=== PATIENT | male | born 1960 | race Caucasian/White ===

== ENCOUNTER 2018-05-03 11:15 | Emergency (ER) | payer OTHER ==
[2018-05-03 11:49] VITALS: TEMP 98; BMI 76.8
--- NOTE | 2018-05-03 11:51 | PDOC ---
History of Present Illness - General Chief Complaint: Blood Pressure Problem Stated Complaint: BLOOD PRESSURE PROBLEM Time Seen by Provider: 05/03/18 11:50 History Source: Patient Exam Limitations: No Limitations - History of Present Illness Initial Comments: 05/03/18 12:42 Mr. Pina is a 57 yo M with a hx of diabetes mellitus and atrial fibrillation who presents to the emergency department with "out of control blood pressure". He states he depleted his metoprolol medication 5 days ago, subsequently leading to 3 days of missed doses. He doubled his usual dose (50mg ) to 100 mg total each for the past two days. He admits to having compliance issues with his other medications and does not take them as prescribed. His usual blood pressures is 140/100. Concurrently, he developed a 7/10 pressure like frontal headache without radiation 5 days ago that improved when he used his metoprolol. Currently, he describes is as a 1/10 now. Denies the following: lightheadedness, fever, recent vision change, chest pain, SOB, mid thoracic back pain, hematuria, hemoptysis, hematemesis, focal neurological deficits, and ataxia. Pmhx: Atrial fibrillation, Diabetes mellitus Shx: Bilateral shoulder repair 2010 Medications: Aspirin 81 mg, eliquis, pravastatin, metoprolol, and fenofibrate. Allergies: None Social history: Ceased smoking cigarettes 15 years ago. Endorses 1 beer/shot 1x per month. Denies substance abuse PCP: Dr. Kale Salmeron [phone] 05/03/18 13:04 05/03/18 13:08 Past History - Past Medical History Allergies/Adverse Reactions: Allergies Allergy/AdvReac Type Severity Reaction Status Date / Time No Known Allergies Allergy Verified 05/03/18 11:52 - Suicide/Smoking/Psychosocial Hx Smoking History: Never smoked Have you smoked in the past 12 months: No Information on smoking cessation initiated: No Hx Alcohol Use: No Drug/Substance Use Hx: No Review of Systems - Review of Systems Able to Perform ROS?: Yes Constitutional: No: Chills, Diaphoresis, Fever, Weakness, Unexplained wgt Loss HEENTM: No: Blurred Vision, Recent change in vision, Ear Pain, Nose Pain, Throat Pain, Mouth Pain Respiratory: No: Cough, Shortness of Breath, Hemoptysis Cardiac (ROS): No: Chest Pain ABD/GI: No: Constipated, Diarrhea, Nausea, Rectal Bleeding, Vomiting, Tarry Stools : No: Burning, Dysuria, Hematuria Musculoskeletal: No: Back Pain, Muscle Weakness Integumentary: No: Rash Neurological: Yes: Headache (frontal pressure like) Endocrine: No: Unexplained Weight Gain *Physical Exam - Vital Signs Last Vital Signs Temp Pulse Resp BP Pulse Ox 98.0 F 91 H 16 191/128 98 05/03/18 11:42 05/03/18 11:42 05/03/18 11:42 05/03/18 11:42 05/03/18 11:42 - Physical Exam General Appearance: Yes: Nourished, Appropriately Dressed HEENT: positive: EOMI, SYDNIE, Normal Voice Neck: negative: Lymphadenopathy (R), Lymphadenopathy (L) Respiratory/Chest: positive: Lungs Clear, Normal Breath Sounds ED Treatment Course - LABORATORY CBC & Chemistry Diagram: 05/03/18 13:00 05/03/18 13:00 Medical Decision Making - Medical Decision Making 05/03/18 16:46 165/117 at 3:00 pm prior to labetolol dose. 150/104 at 3:45 pm s/p 1st labetolol 10 mg dose 155/102 at 4:30 pm s/p 2nd labetolol 10 mg dose. Understands instructions at discharge to continue using current medications as prescribed which includes his anti-hypertensives and to follow up with his primary care doctor tomorrow (05/04/2018) for further management. This was reiterated to him multiple times throughout the stay. 05/03/18 16:47 *DC/Admit/Observation/Transfer Diagnosis at time of Disposition: Hypertension Qualifiers: Hypertension type: unspecified Qualified Code(s): I10 - Essential (primary) hypertension - Discharge Dispostion Disposition: HOME Decision to Admit order: No - Referrals Referrals: Kale Salmeron [Primary Care Provider] - - Patient Instructions Printed Discharge Instructions: DI for High Blood Pressure, How to Monitor Your Blood Pressure at Home Additional Instructions: You have been diagnosed with hypertension today. Please return to the emergency department if your blood pressure becomes unstable. Please return to the emergency department if you develop chest pain, shortness of breath, or any concerning symptom. Follow up with your primary care provider, Dr. Salmeron, tomorrow (05/04/2018) to adjust anti-hypertensive medications and further follow up. - Post Discharge Activity
[2018-05-03] MEDS ORDERED: ACETAMINOPHEN 1000 MG/100 ML VIAL (NON FORMULARY) IVPB ONE (12:22)
[2018-05-03] MEDS ORDERED: LABETALOL HCL 5 MG/1 ML (100MG/20 ML VIAL) IVPUSH ONE ×2 (12:22→14:45)
--- NOTE | 2018-05-03 12:38 | PDOC ---
Attending Attestation - Resident Resident Name: AraceliFranky - ED Attending Attestation I have performed the following: I have examined & evaluated the patient, The case was reviewed & discussed with the resident, I agree w/resident's findings & plan, Exceptions are as noted - HPI HPI: 05/03/18 12:10 57 year old M c/ hx CAD p/w hypertension, DM, HLD, afib on eliquis presents with headache and hypertension. The patient reported that he ran out of his metoprolol 50 mg daily 5 days ago. He reports that his baseline HTN is systolis 140s and diastolics around 105, even while on medication. For 3 days, the patient stated that his BP was elevated and was complaining about gradual tension headaches. Once he refilled his prescription two days ago, he had doubled his dosing of his blood pressure medication, however, his BP continue to remain elevated. His headache improved significantly but continued to have persistent headache. Denies slurring of speech, numbness, weakness, gait instability. Denies chest pain, SOB, fevers, chills, cough, vomiting, diarrhea. Because of persistence of HTN, pt came into the ED. - Physicial Exam PE: 05/03/18 12:38 GENERAL: Awake, alert, and fully oriented, in no acute distress HEAD: No signs of trauma EYES: EOMI, sclera anicteric, conjunctiva clear ENT: Auricles normal inspection, hearing grossly normal, nares patent NECK: Normal ROM, supple LUNGS: Breath sounds equal, clear to auscultation bilaterally. No wheezes, and no crackles HEART: Irregular rate and rhythm, normal S1 and S2, no murmurs, rubs or gallops ABDOMEN: Soft, nontender, No guarding, no rebound. No masses EXTREMITIES: Normal range of motion, no edema. No clubbing or cyanosis. No cords, erythema, or tenderness NEUROLOGICAL: Cranial nerves II through XII grossly intact. Normal speech, normal gait SKIN: Warm, Dry, normal turgor, no rashes or lesions noted. - Medical Decision Making 05/03/18 12:41 Vital Signs Temp Pulse Resp BP Pulse Ox 98.0 F 91 H 16 191/128 98 05/03/18 11:42 05/03/18 11:42 05/03/18 11:42 05/03/18 11:42 05/03/18 11:42 The patient overall is nontoxic appearing. I suspect that the patient has tension headaches 2/2 hypertension. However, given hx of CAD and elevated blood pressure, will r/o ICH, PRESS syndrome with CT head. Labs, ECG. Control BP. Consult pt's PMD to see if patient needs readjustment in medications. 05/03/18 14:33 CBC, BMP 05/03/18 13:00 05/03/18 13:00 CMP Sodium 136 mmol/L (136-145) 05/03/18 13:00 Potassium 4.6 mmol/L (3.5-5.1) 05/03/18 13:00 Chloride 102 mmol/L (98-107) 05/03/18 13:00 Carbon Dioxide 28 mmol/L (21-32) 05/03/18 13:00 Anion Gap 6 (8-16) L 05/03/18 13:00 BUN 18 mg/dL (7-18) 05/03/18 13:00 Creatinine 1.1 mg/dL (0.7-1.3) 05/03/18 13:00 Creat Clearance w eGFR > 60 (>60) 05/03/18 13:00 Random Glucose 250 mg/dL (74-106) H 05/03/18 13:00 Calcium 8.8 mg/dL (8.5-10.1) 05/03/18 13:00 Total Bilirubin 1.5 mg/dL (0.2-1.0) H 05/03/18 13:00 AST 48 U/L (15-37) H 05/03/18 13:00 ALT 54 U/L (12-78) 05/03/18 13:00 Alkaline Phosphatase 77 U/L (45-117) 05/03/18 13:00 Creatine Kinase 286 IU/L (39-308) 05/03/18 13:00 Creatine Kinase Index 1.5 % (0.0-5.0) 05/03/18 13:00 CK-MB (CK-2) 4.32 ng/mL (0.5-3.6) H 05/03/18 13:00 Troponin I < 0.02 ng/ml (0.00-0.05) 05/03/18 13:00 Total Protein 6.8 g/dl (6.4-8.2) 05/03/18 13:00 Albumin 3.7 g/dl (3.4-5.0) 05/03/18 13:00 Labs reviewed. Pt's PMD Dr. Salmeron had been attempted to be reach, but office reports he is unavailable today. BP improving with medications. We strongly encouraged the patient to follow up with PMD tomorrow for medication adjustments. Pt verbalizes understanding and agrees with plan. 05/03/18 16:31 Repeat BP 155/102 Heart Score/ECG Review #1 ECG reviewed & interpreted by me at: 12:15 05/03/18 12:39 atrial fibrillation 97, no std/mari, normal intervals, normal axis, QTC 396 msec
[2018-05-03] MEDS ORDERED: LABETALOL HCL 5 MG/1 ML (200MG/40ML VIAL) IVPB ONE (13:12)
[2018-05-03] MEDS ORDERED: ACETAMINOPHEN INJECTION 100 ML IVPB ONE (13:12)
[2018-05-03 13:17] LABS: BASO % 0.6 % (0-2.0); EOS % 0.7 % (0-4.5); HEMATOCRIT 50.4 % (35.4-49); HEMOGLOBIN 17.3 GM/dL (11.7-16.9); MCH 31.5 pg (25.7-33.7); MCHC 34.3 g/dl (32.0-35.9); MEAN CELL VOLUME 91.9 fl (80-96); MEAN PLT VOLUME 9.5 fl (7.5-11.1); MONO % 7.3 % (3.8-10.2); NEUT % 62.4 % (42.8-82.8); PLATELET COUNT 190 K/MM3 (134-434); RBC 5.48 M/mm3 (4.00-5.60); RDW 13.9 % (11.9-15.9); WHITE BLOOD COUNT 7.8 K/mm3 (4.0-10.0)
[2018-05-03 13:37] LABS: INR 1.18 (0.82-1.09); PROTHROMBIN TIME (PATIENT) 13.3 SEC (9.7-13.0)
[2018-05-03 13:48] LABS: ALBUMIN 3.7 g/dl (3.4-5.0); ANION GAP 6 (8-16); BILIRUBIN,TOTAL 1.5 mg/dL (0.2-1.0); BLOOD UREA NITROGEN 18 mg/dL (7-18); CALCIUM 8.8 mg/dL (8.5-10.1); CHLORIDE 102 mmol/L (98-107); CO2 28 mmol/L (21-32); CREATININE 1.1 mg/dL (0.7-1.3); GLUCOSE,RANDOM 250 mg/dL (74-106); SGPT/ALT 54 U/L (12-78); SODIUM 136 mmol/L (136-145); TOT PROT 6.8 g/dl (6.4-8.2)
[2018-05-03 13:50] LABS: ALK PHOS 77 U/L (45-117)
[2018-05-03 14:11] LABS: POTASSIUM 4.6 mmol/L (3.5-5.1); SGOT/AST 48 U/L (15-37)
--- NOTE | 2018-05-03 15:17 | EKG ---
Test Reason : Blood Pressure : / mmHG Vent. Rate : 097 BPM Atrial Rate : 105 BPM P-R Int : 000 ms QRS Dur : 092 ms QT Int : 312 ms P-R-T Axes : 000 -03 -12 degrees QTc Int : 396 ms ATRIAL FIBRILLATION ABNORMAL ECG WHEN COMPARED WITH ECG OF 03-JUL-2006 11:51, ATRIAL FIBRILLATION HAS REPLACED SINUS RHYTHM VENT. RATE HAS INCREASED BY 33 BPM Confirmed by JOSE MILLAN, SARATH ([id number]) on 05/03/2018 3:16:57 PM Referred By: Confirmed By:SARATH GARCIA MD
[2018-05-03 16:32] VITALS: BP 155/102; PULSE 84
== END 2018-05-03 16:35 | disposition home or self-care (01) ==
LOC: JER 11:15
DX: I10 Essential (primary) hypertension (principal); I48.91 Unspecified atrial fibrillation; Z79.01 Long term (current) use of anticoagulants; E11.9 Type 2 diabetes mellitus without complications; E78.5 Hyperlipidemia, unspecified
CPT/HCPCS: 36415; 70450-TC; 80053; 82550; 82553; 84484; 85025; 85610; 86850; 86900; 86901; 93005; 93010; 99282-25